=== PATIENT | male | born 1955 | race Caucasian/White ===

== ENCOUNTER 2018-07-09 14:14 | Inpatient (IN) | payer MEDICAID, OTHER ==
[~2018-07-09] VITALS: Ht 162.6 cm; Wt 159.7 kg
[2018-07-09] MEDS ORDERED: DOCU-150 MT (14:24)
[2018-07-09] MEDS ORDERED: INSU10VI2 SUBCUT (14:24)
[2018-07-09] MEDS ORDERED: PIOG15TA23 MT (14:24)
[2018-07-09] MEDS ORDERED: PANT40TA4 MT (14:24)
[2018-07-09] MEDS ORDERED: FERR325T6 MT (14:24)
[2018-07-09] MEDS ORDERED: METF-416 MT (14:24)
[2018-07-09] MEDS ORDERED: DICL100G31 TP (14:24)
[2018-07-09] MEDS ORDERED: FUROSEMIDE 40MG/4ML VIAL IV ONE (15:15)
[2018-07-09 16:35] LABS: BASOPHILS % 0.5 % (0.0-2.0); EOSINOPHILS % 0.8 % (0.0-5.0); HEMATOCRIT. 32.5 % (42.0-52.0); HEMOGLOBIN. 10.4 g/dL (14.0-18.0); LYMPHOCYTES % 15.9 % (20.0-50.0); MEAN CORPUSCULAR HEMOGLOBIN 27.7 pg (28.0-32.0); MEAN CORPUSCULAR VOLUME 87.1 fL (80.0-94.0); MEAN PLATELET VOLUME 7.8 fl (7.4-10.4); MONOCYTES % 7.3 % (2.0-8.0); NEUTROPHILS % 75.5 % (40.0-76.0); PLATELET 240 x1000/uL (130-400); RED BLOOD CELL COUNT 3.73 mill/uL (4.7-6.1); RED CELL DISTRIBUTION WIDTH 14.8 % (11.6-14.6)
[2018-07-09 16:37] LABS: CHLORIDE 105 mEq/L (98-107); INR 1.1; PROTHROMBIN TIME 10.6 sec (9.1-11.1)
[2018-07-09 16:42] LABS: ETHANOL BLOOD < 10 mg/dL
[2018-07-09 17:32] LABS: CLARITY URINE CLEAR (CLEAR); COLOR URINE YELLOW (YELLOW); KETONES URINE NEGATIVE (NEGATIVE); LEUKOCYTE ESTERASE URINE NEGATIVE (NEGATIVE); NITRITE URINE POSITIVE (NEGATIVE); OCCULT BLOOD URINE NEGATIVE (NEGATIVE); PH URINE 5.5 (4.5-8.0); PROTEIN URINE NEGATIVE (NEGATIVE); SPECIFIC GRAVITY URINE 1.013 (1.005-1.030); UROBILINOGEN URINE 0.2 E.U./dL (0.2-1.0)
[2018-07-09 17:46] LABS: *BARBITURATES SCREEN URINE NEGATIVE (NEGATIVE); *BENZODIAZEPINES SCREEN URINE NEGATIVE (NEGATIVE); *COCAINE SCREEN URINE NEGATIVE (NEGATIVE)
[2018-07-09 17:47] LABS: CANNABINOID URINE SCREEN NEGATIVE (NEGATIVE); METHADONE URINE SCREEN NEGATIVE (NEGATIVE); OPIATES URINE SCREEN NEGATIVE (NEGATIVE); PHENCYCLIDINE URINE SCREEN NEGATIVE (NEGATIVE)
[2018-07-09 17:54] LABS: *AMPHETAMINES SCREEN URINE NEGATIVE (NEGATIVE)
[2018-07-09] MEDS ORDERED: DIPHENHYDRAMINE 50MG/ML VIAL IV PRN (19:45)
[2018-07-09] MEDS ORDERED: IPRATROPIUM/ALBUTEROL 0.5-3(2.5)MG/3ML NEB INH PRN (19:45)
[2018-07-09] MEDS ORDERED: DEXTROSE 50% WATER 50ML SYRINGE IV PRN (19:45)
[2018-07-09] MEDS ORDERED: HYDROCODONE/ACETAMINOPHEN 5/325MG TABLET PO PRN (19:45)
[2018-07-09] MEDS ORDERED: ACETAMINOPHEN 325MG TABLET PO PRN (19:45)
[2018-07-09] MEDS ORDERED: LORAZEPAM 0.5MG TABLET PO PRN (19:45)
[2018-07-09] MEDS ORDERED: ACETAMINOPHEN 650MG SUPP PR PRN (19:45)
[2018-07-09] MEDS ORDERED: CLONIDINE 0.1MG TABLET PO PRN (19:45)
[2018-07-09] MEDS ORDERED: ONDANSETRON HCL 4MG/2ML INJ IV PRN (19:45)
[2018-07-09] MEDS ORDERED: NA PHOS,M-B/NA PHOS,DI-BA ENEMA 118ML PR PRN (19:45)
[2018-07-09] MEDS ORDERED: MAGNESIUM/ALUMINUM HYDROXIDE/SIMETHICONE 30ML UDC PO PRN (19:45)
[2018-07-09] MEDS ORDERED: DOCUSATE SODIUM 100MG CAPSULE PO PRN (19:45)
[2018-07-09] MEDS ORDERED: GUAIFENESIN 200MG/10ML SUGAR FREE UDC PO PRN (19:45)
[2018-07-09] MEDS ORDERED: LEVOFLOXACIN 500MG PREMIX 100 ML IV SCH (20:00)
[2018-07-09 20:23] LABS: BG BASE EXCESS 3.5 mmol/L (-2.0-2.0); BG CARBOXYHEMOGLOBIN 0.5 % (0.5-1.5); BG FRACTION INSPIRED OXYGEN 21; BG HCO3 ACT 28.3 mmol/L (22.0-26.0); BG METHEMOGLOBIN 0.2 % (0.0-1.5); BG OXYHEMOGLOBIN 94.3 % (94.0-97.0); BG PCO2 43.6 mmHg (35.0-45.0); BG PO2 74.5 mmHg (75.0-100.0); BG SAMPLE SITE RIGHT RADIAL; BG TOTAL HEMOGLOBIN 11.4 g/dL (12.0-18.0); BG VENT MODE ROOM AIR
[2018-07-09] MEDS: INSULIN LISPRO 100 UNITS/ML SUBCUT SCH (21:00)
[2018-07-09] MEDS: BLOOD SUGAR DIAGNOSTIC STRIP TEST SCH (21:00)
[2018-07-10 00:30] VITALS: BP 101/50
[2018-07-10 00:36] LABS: CREATINE KINASE 50 IU/L (39-308)
[2018-07-10 00:37] LABS: CREATINE KINASE MB FRACTION < 1.0 ng/mL (0.5-3.6)
[2018-07-10] MEDS ORDERED: IPRATROPIUM/ALBUTEROL 0.5-3(2.5)MG/3ML NEB INH SCH (06:00)
[2018-07-10 06:56] LABS: BASOPHILS % 0.5 % (0.0-2.0); EOSINOPHILS % 1.1 % (0.0-5.0); HEMATOCRIT. 33.5 % (42.0-52.0); HEMOGLOBIN. 10.8 g/dL (14.0-18.0); LYMPHOCYTES % 18.5 % (20.0-50.0); MEAN CORPUSCULAR HEMOGLOBIN 27.9 pg (28.0-32.0); MEAN CORPUSCULAR VOLUME 86.2 fL (80.0-94.0); MEAN PLATELET VOLUME 7.7 fl (7.4-10.4); MONOCYTES % 7.7 % (2.0-8.0); NEUTROPHILS % 72.2 % (40.0-76.0); PLATELET 261 x1000/uL (130-400); RED BLOOD CELL COUNT 3.88 mill/uL (4.7-6.1); RED CELL DISTRIBUTION WIDTH 14.9 % (11.6-14.6)
[2018-07-10] MEDS: BLOOD SUGAR DIAGNOSTIC STRIP TEST SCH ×3 (07:40→17:03)
[2018-07-10] MEDS ORDERED: PANTOPRAZOLE 40MG DR TABLET PO SCH (07:40)
[2018-07-10 08:00] VITALS: BP 110/49
[2018-07-10] MEDS ORDERED: ASPIRIN 81MG EC TABLET PO SCH (09:00)
[2018-07-10] MEDS ORDERED: AMLODIPINE 5MG TABLET PO SCH (09:00)
[2018-07-10] MEDS ORDERED: FUROSEMIDE 40MG/4ML VIAL IV SCH (09:00)
[2018-07-10] MEDS ORDERED: ENOXAPARIN 40MG/0.4ML SYR SUBCUT SCH (09:00)
[2018-07-10] MEDS: DOCUSATE SODIUM 100MG CAPSULE PO SCH ×2 (09:26→17:10)
[2018-07-10] MEDS: INSULIN LISPRO 100 UNITS/ML SUBCUT SCH ×3 (09:27→17:11)
[2018-07-10 11:25] LABS: CHLORIDE 103 mEq/L (98-107)
[2018-07-10 11:53] LABS: HDL CHOLESTEROL 42 mg/dL (40-59); LDL CHOLESTEROL 109 mg/dL (5-100); TOTAL IRON BINDING CAPACITY 388 ug/dL (250-450)
[2018-07-10 12:00] VITALS: BP 119/46
[2018-07-10 12:48] LABS: CREATINE KINASE 44 IU/L (39-308)
[2018-07-10] MEDS ORDERED: IPRATROPIUM/ALBUTEROL 0.5-3(2.5)MG/3ML NEB HHN SCH (13:00)
[2018-07-10 13:14] LABS: CREATINE KINASE MB FRACTION < 1.0 ng/mL (0.5-3.6)
[2018-07-10 16:00] VITALS: BP 98/49
[2018-07-10 17:39] VITALS: BP 119/46
[2018-07-10] MEDS ORDERED: LEVOFLOXACIN 500MG PREMIX 100 ML IV SCH (18:00)
[2018-07-11] MEDS ORDERED: LEVOFLOXACIN 500MG TABLET PO SCH (11:00)
== END 2018-07-10 19:22 | disposition home or self-care (01) | DRG 313 ==
LOC: ER 14:14 → EDBEDREQ 15:06 → 7WST 18:09 → EDBEDREQTM 18:24 → EDBEDREQ 18:24 → SUPCPDRO 20:28 → ENRESERV 23:26
PROVIDERS: ADMIT Internal Medicine; ATTEND Internal Medicine
DX: R07.89 Other chest pain (principal); E66.2 Morbid (severe) obesity with alveolar hypoventilation; Z68.44 Body mass index [BMI] 60.0-69.9, adult; J96.10 Chronic respiratory failure, unspecified whether with hypoxia or hypercapnia; D64.9 Anemia, unspecified; E11.51 Type 2 diabetes mellitus with diabetic peripheral angiopathy without gangrene; G40.909 Epilepsy, unspecified, not intractable, without status epilepticus; K21.9 Gastro-esophageal reflux disease without esophagitis; I10 Essential (primary) hypertension; I44.0 Atrioventricular block, first degree; K64.9 Unspecified hemorrhoids; E11.65 Type 2 diabetes mellitus with hyperglycemia; Z79.4 Long term (current) use of insulin
CPT/HCPCS: 36415; 36600; 71045; 71250; 80061; 80305; 82375; 82550; 82553; 82805; 82962; 83036; 83540; 83550; 83880; 84439; 84443; 84484; 85379; 87804; 93005; 93306; 93923; 93970; 96365; 96366; 96375; 97162; 99285; G0482; J1650; J1815; J1940; J1956; J7620

== ENCOUNTER 2019-12-26 20:19 | Inpatient (IN) | payer MEDICARE, MEDICAID ==
[~2019-12-26] VITALS: Ht 165.1 cm; Wt 170.4 kg
[~2019-12-26 20:19] MED LIST: DICL100G31 TP; DOCU-150 MT; FERR325T6 MT; INSU10VI2 SUBCUT; METF-416 MT; PANT40TA4 MT; PIOG15TA68 MT
[2019-12-26 23:36] LABS: HEMATOCRIT. 27.3 % (42.0-52.0); HEMOGLOBIN. 8.5 g/dL (14.0-18.0); MEAN CORPUSCULAR HEMOGLOBIN 22.8 pg (28.0-32.0); MEAN CORPUSCULAR VOLUME 73.3 fL (80.0-94.0); MEAN PLATELET VOLUME 7.6 fl (7.4-10.4); PLATELET 239 x1000/uL (130-400); RED BLOOD CELL COUNT 3.72 mill/uL (4.7-6.1); RED CELL DISTRIBUTION WIDTH 17.1 % (11.6-14.6)
[2019-12-26 23:45] LABS: CHLORIDE 100 mEq/L (98-107)
[2019-12-26 23:59] LABS: PLATELET ESTIMATE NORMAL
[2019-12-27] MEDS ORDERED: FUROSEMIDE 40MG/4ML VIAL IVP ONE (00:15)
[2019-12-27 14:10] VITALS: BP 117/68
[2019-12-27] MEDS ORDERED: DILTIAZEM HCL 5MG/ML 5ML VIAL IV NR (14:15)
[2019-12-27] MEDS ORDERED: CLONIDINE 0.1MG TABLET PO PRN (14:45)
[2019-12-27] MEDS ORDERED: HYDROCODONE/ACETAMINOPHEN 5/325MG TABLET PO PRN (14:45)
[2019-12-27] MEDS ORDERED: ONDANSETRON HCL 4MG/2ML INJ IV PRN (14:45)
[2019-12-27] MEDS ORDERED: ACETAMINOPHEN 325MG TABLET PO PRN (14:45)
[2019-12-27] MEDS ORDERED: DEXAMETHASONE 10 MG/ML VIAL IV NR (15:00)
[2019-12-27] MEDS: FUROSEMIDE 40MG/4ML VIAL IV SCH (15:10)
[2019-12-27 16:00] VITALS: BP 105/51
[2019-12-27 16:39] LABS: BASOPHILS % 0.3 % (0.0-2.0); EOSINOPHILS % 0.3 % (0.0-5.0); HEMATOCRIT. 29.6 % (42.0-52.0); HEMOGLOBIN. 9.1 g/dL (14.0-18.0); LYMPHOCYTES % 10.1 % (20.0-50.0); MEAN CORPUSCULAR HEMOGLOBIN 22.4 pg (28.0-32.0); MEAN CORPUSCULAR VOLUME 73.1 fL (80.0-94.0); MEAN PLATELET VOLUME 7.7 fl (7.4-10.4); MONOCYTES % 9.7 % (2.0-8.0); NEUTROPHILS % 79.6 % (40.0-76.0); PLATELET 256 x1000/uL (130-400); RED BLOOD CELL COUNT 4.05 mill/uL (4.7-6.1); RED CELL DISTRIBUTION WIDTH 17.2 % (11.6-14.6)
[2019-12-27 16:45] LABS: CHLORIDE 99 mEq/L (98-107)
[2019-12-27 16:53] LABS: D-DIMER 0.87 mg/L FEU (<0.50); INR 1.2; PARTIAL THROMBOPLASTIN TIME 29.5 sec (23.4-31.0); PROTHROMBIN TIME 12.3 sec (9.6-11.0)
[2019-12-27] MEDS: PIPERACILLIN/TAZOBACTAM 3.375 G in DEXT 5% WATER 100 ML IV SCH ×2 (17:00→17:10)
[2019-12-27] MEDS: INSULIN LISPRO 100 UNITS/ML SUBCUT SCH ×2 (18:10→20:28)
[2019-12-27] MEDS ORDERED: DEXTROSE 50% WATER 50ML SYRINGE IV PRN (18:15)
[2019-12-27] MEDS: BLOOD SUGAR DIAGNOSTIC STRIP TEST SCH (20:22)
[2019-12-27] MEDS: ENOXAPARIN 40MG/0.4ML SYR SUBCUT SCH (20:27)
[2019-12-27 20:50] VITALS: BP 112/54
[2019-12-27] MEDS ORDERED: PIPERACILLIN/TAZOBACTAM 3.375 G/VIAL IV SCH (22:00)
[2019-12-28] VITALS (7 sets, daily range): BP systolic 98–123; BP diastolic 55–71
[2019-12-28 00:01] LABS: CREATINE KINASE 426 IU/L (39-308)
[2019-12-28 00:02] LABS: CREATINE KINASE MB FRACTION 2.4 ng/mL (0.5-3.6)
[2019-12-28] MEDS: PIPERACILLIN/TAZOBACTAM 3.375 G in DEXT 5% WATER 100 ML IV SCH ×4 (00:20→19:21)
[2019-12-28] MEDS: BLOOD SUGAR DIAGNOSTIC STRIP TEST SCH ×4 (05:50→21:18)
[2019-12-28 06:30] LABS: CHLORIDE 102 mEq/L (98-107)
[2019-12-28 06:33] LABS: BASOPHILS % 0.1 % (0.0-2.0); HEMATOCRIT. 27.6 % (42.0-52.0); HEMOGLOBIN. 8.7 g/dL (14.0-18.0); LYMPHOCYTES % 9.6 % (20.0-50.0); MEAN CORPUSCULAR HEMOGLOBIN 22.9 pg (28.0-32.0); MEAN CORPUSCULAR VOLUME 72.9 fL (80.0-94.0); MONOCYTES % 3.7 % (2.0-8.0); NEUTROPHILS % 86.6 % (40.0-76.0); PLATELET 240 x1000/uL (130-400); RED BLOOD CELL COUNT 3.79 mill/uL (4.7-6.1); RED CELL DISTRIBUTION WIDTH 16.9 % (11.6-14.6)
[2019-12-28 06:41] LABS: LDL CHOLESTEROL 98 mg/dL (5-100)
[2019-12-28 06:42] LABS: CREATINE KINASE 300 IU/L (39-308); CREATINE KINASE MB FRACTION 1.8 ng/mL (0.5-3.6)
[2019-12-28 06:43] LABS: HDL CHOLESTEROL 34 mg/dL (40-59); T4 FREE 1.07 ng/dL (0.76-1.46)
[2019-12-28] MEDS ORDERED: THIAMINE HCL 100MG TABLET PO SCH (09:00)
[2019-12-28] MEDS ORDERED: ZINC SULFATE 220 MG ( 50 ) CAPSULE PO SCH (09:00)
[2019-12-28] MEDS ORDERED: ASCORBIC ACID 500 MG TABLET PO SCH (09:00)
[2019-12-28] MEDS: FUROSEMIDE 40MG/4ML VIAL IV SCH (09:43)
[2019-12-28] MEDS: ENOXAPARIN 40MG/0.4ML SYR SUBCUT SCH ×2 (09:45→21:19)
[2019-12-28] MEDS: INSULIN LISPRO 100 UNITS/ML SUBCUT SCH ×3 (10:01→22:37)
[2019-12-28 12:46] LABS: BG BASE EXCESS 2.3 mmol/L (-2.0-2.0); BG CARBOXYHEMOGLOBIN 0.2 % (0.5-1.5); BG HCO3 ACT 27.5 mmol/L (22.0-26.0); BG METHEMOGLOBIN 0.2 % (0.0-1.5); BG OXYHEMOGLOBIN 94.6 % (94.0-97.0); BG PH 7.395 (7.350-7.450); BG PO2 76.6 mmHg (75.0-100.0); BG SAMPLE SITE RIGHT RADIAL; BG TOTAL HEMOGLOBIN 9.6 g/dL (12.0-18.0); BG VENT MODE NASAL CANNULA
[2019-12-28 13:49] LABS: TOTAL IRON BINDING CAPACITY 382 ug/dL (250-450)
[2019-12-28] MEDS ORDERED: INSULIN GLARGINE UD 100 UNITS/ML SYR SUBCUT SCH (14:00)
[2019-12-28] MEDS ORDERED: IPRATROPIUM/ALBUTEROL 0.5-3(2.5)MG/3ML NEB HHN PRN (16:30)
[2019-12-28] MEDS: METHYLPREDNISOLONE SOD SUCC 40 MG/ML VIAL IV SCH (19:21)
[2019-12-28] MEDS: IPRATROPIUM/ALBUTEROL 0.5-3(2.5)MG/3ML NEB HHN SCH (20:48)
[2019-12-28] MEDS: FAMOTIDINE 20MG TABLET PO SCH (21:18)
[2019-12-29] VITALS: BP 107/54
[2019-12-29] MEDS: PIPERACILLIN/TAZOBACTAM 3.375 G in DEXT 5% WATER 100 ML IV SCH ×5 (00:44→23:30)
[2019-12-29] MEDS: IPRATROPIUM/ALBUTEROL 0.5-3(2.5)MG/3ML NEB HHN SCH ×4 (02:47→21:26)
[2019-12-29] MEDS: METHYLPREDNISOLONE SOD SUCC 40 MG/ML VIAL IV SCH ×3 (03:01→17:45)
[2019-12-29 04:00] VITALS: BP 108/52
[2019-12-29] MEDS: BLOOD SUGAR DIAGNOSTIC STRIP TEST SCH ×4 (04:52→20:41)
[2019-12-29 05:36] LABS: CHLORIDE 102 mEq/L (98-107)
[2019-12-29 06:06] LABS: BASOPHILS % 0.1 % (0.0-2.0); HEMATOCRIT. 26.8 % (42.0-52.0); HEMOGLOBIN. 8.1 g/dL (14.0-18.0); LYMPHOCYTES % 7.4 % (20.0-50.0); MEAN CORPUSCULAR HEMOGLOBIN 22.3 pg (28.0-32.0); MEAN CORPUSCULAR VOLUME 73.4 fL (80.0-94.0); MEAN PLATELET VOLUME 8.3 fl (7.4-10.4); MONOCYTES % 4.2 % (2.0-8.0); NEUTROPHILS % 88.3 % (40.0-76.0); PLATELET 250 x1000/uL (130-400); RED BLOOD CELL COUNT 3.65 mill/uL (4.7-6.1); RED CELL DISTRIBUTION WIDTH 17.3 % (11.6-14.6)
[2019-12-29 08:00] VITALS: BP 128/52
[2019-12-29] MEDS: INSULIN LISPRO 100 UNITS/ML SUBCUT SCH ×4 (08:23→20:44)
[2019-12-29] MEDS: ENOXAPARIN 40MG/0.4ML SYR SUBCUT SCH ×2 (08:23→20:42)
[2019-12-29] MEDS: FUROSEMIDE 40MG/4ML VIAL IV SCH (08:23)
[2019-12-29 08:24] LABS: CLARITY URINE CLEAR (CLEAR); COLOR URINE YELLOW (YELLOW); KETONES URINE NEGATIVE (NEGATIVE); LEUKOCYTE ESTERASE URINE 2+ (NEGATIVE); NITRITE URINE NEGATIVE (NEGATIVE); OCCULT BLOOD URINE NEGATIVE (NEGATIVE); PROTEIN URINE NEGATIVE (NEGATIVE); SPECIFIC GRAVITY URINE 1.024 (1.005-1.030)
[2019-12-29 08:41] LABS: *BARBITURATES SCREEN URINE NEGATIVE (NEGATIVE)
[2019-12-29 08:42] LABS: *AMPHETAMINES SCREEN URINE NEGATIVE (NEGATIVE); *BENZODIAZEPINES SCREEN URINE NEGATIVE (NEGATIVE); *COCAINE SCREEN URINE NEGATIVE (NEGATIVE); METHADONE URINE SCREEN NEGATIVE (NEGATIVE); OPIATES URINE SCREEN NEGATIVE (NEGATIVE); PHENCYCLIDINE URINE SCREEN NEGATIVE (NEGATIVE)
[2019-12-29 08:43] LABS: CANNABINOID URINE SCREEN NEGATIVE (NEGATIVE)
[2019-12-29] MEDS: INSULIN GLARGINE UD 100 UNITS/ML SYR SUBCUT SCH (11:17)
[2019-12-29 12:00] VITALS: BP 114/75
[2019-12-29] MEDS ORDERED: INSULIN GLARGINE UD 100 UNITS/ML SYR SUBCUT NR (12:30)
[2019-12-29] MEDS ORDERED: P20 PO (13:28)
[2019-12-29] MEDS ORDERED: AMOX1TAB16 MT (13:28)
[2019-12-29] MEDS ORDERED: ALBU90AE INH (13:28)
[2019-12-29] MEDS ORDERED: FURO-151 MT (13:28)
[2019-12-29] MEDS: METFORMIN HCL 500MG TABLET PO SCH ×2 (13:39→17:45)
[2019-12-29] MEDS: PIOGLITAZONE 15MG TABLET PO SCH (13:40)
[2019-12-29 16:00] VITALS: BP 124/73
[2019-12-29 16:22] LABS: BG BASE EXCESS 1.3 mmol/L (-2.0-2.0); BG CARBOXYHEMOGLOBIN 0.1 % (0.5-1.5); BG DEOXYHEMOGLOBIN 12.5 % (0.0-5.0); BG FRACTION INSPIRED OXYGEN 21; BG HCO3 ACT 26.7 mmol/L (22.0-26.0); BG METHEMOGLOBIN 0.2 % (0.0-1.5); BG OXYGEN SATURATION 87.5 % (92.0-98.5); BG OXYHEMOGLOBIN 87.2 % (94.0-97.0); BG PCO2 45.8 mmHg (35.0-45.0); BG PH 7.383 (7.350-7.450); BG PO2 54.9 mmHg (75.0-100.0); BG SAMPLE SITE RIGHT BRACHIAL; BG VENT MODE ROOM AIR
[2019-12-29] MEDS ORDERED: INSULIN REGULAR (HUMULIN R) UD 100 UNITS/ML SYR SUBCUT ONE (18:45)
[2019-12-29] MEDS ORDERED: INSULIN LISPRO 100 UNITS/ML SUBCUT ONE (19:00)
[2019-12-29] MEDS: FAMOTIDINE 20MG TABLET PO SCH (20:41)
[2019-12-29 20:51] VITALS: BP 116/67
[2019-12-30 00:18] VITALS: BP 115/72
[2019-12-30] MEDS: METHYLPREDNISOLONE SOD SUCC 40 MG/ML VIAL IV SCH ×3 (02:20→17:52)
[2019-12-30] MEDS: IPRATROPIUM/ALBUTEROL 0.5-3(2.5)MG/3ML NEB HHN SCH ×4 (02:35→21:20)
[2019-12-30 04:00] VITALS: BP 146/72
[2019-12-30] MEDS: PIPERACILLIN/TAZOBACTAM 3.375 G in DEXT 5% WATER 100 ML IV SCH ×3 (05:16→17:52)
[2019-12-30] MEDS: BLOOD SUGAR DIAGNOSTIC STRIP TEST SCH ×4 (07:29→21:49)
[2019-12-30 08:00] VITALS: BP_SYST 109; BP_SYST 128; BP_DIAS 52; BP_DIAS 59
[2019-12-30] MEDS: PIOGLITAZONE 15MG TABLET PO SCH (09:30)
[2019-12-30] MEDS: ENOXAPARIN 40MG/0.4ML SYR SUBCUT SCH ×2 (09:30→21:49)
[2019-12-30] MEDS: FUROSEMIDE 40MG/4ML VIAL IV SCH (09:30)
[2019-12-30] MEDS: METFORMIN HCL 500MG TABLET PO SCH ×2 (09:30→17:53)
[2019-12-30] MEDS: INSULIN LISPRO 100 UNITS/ML SUBCUT SCH ×4 (09:32→22:55)
[2019-12-30] MEDS: INSULIN GLARGINE UD 100 UNITS/ML SYR SUBCUT SCH ×2 (11:00→22:59)
[2019-12-30 12:00] VITALS: BP 122/52
[2019-12-30] MEDS ORDERED: INSULIN GLARGINE UD 100 UNITS/ML SYR SUBCUT SCH ×2 (12:00→13:00)
[2019-12-30 12:26] LABS: HEMATOCRIT 30.1 % (42.0-52.0); HEMOGLOBIN 9.3 g/dL (14.0-18.0); MEAN CORPUSCULAR HEMOGLOBIN 22.7 pg (28.0-32.0); MEAN CORPUSCULAR VOLUME 73.6 fL (80.0-94.0); PLATELET 260 x1000/uL (130-400); RED BLOOD CELL COUNT 4.08 mill/uL (4.7-6.1); RED CELL DISTRIBUTION WIDTH 16.9 % (11.6-14.6)
[2019-12-30 12:38] LABS: CHLORIDE 98 mEq/L (98-107)
[2019-12-30 12:43] LABS: PHOSPHORUS 4.2 mg/dL (2.5-4.9)
[2019-12-30 16:00] VITALS: BP 126/55
[2019-12-30] MEDS: DILTIAZEM HCL 30MG TABLET PO SCH (17:53)
[2019-12-30 20:28] VITALS: BP 139/73
[2019-12-30] MEDS: FAMOTIDINE 20MG TABLET PO SCH (21:49)
[2019-12-30] MEDS ORDERED: INSULIN LISPRO 100 UNITS/ML SUBCUT NR (22:28)
[2019-12-31 00:16] VITALS: BP 116/55
[2019-12-31] MEDS: PIPERACILLIN/TAZOBACTAM 3.375 G in DEXT 5% WATER 100 ML IV SCH ×4 (00:43→17:31)
[2019-12-31] MEDS: DILTIAZEM HCL 30MG TABLET PO SCH ×2 (00:43→06:35)
[2019-12-31] MEDS: IPRATROPIUM/ALBUTEROL 0.5-3(2.5)MG/3ML NEB HHN SCH ×2 (03:10→08:27)
[2019-12-31 04:00] VITALS: BP 124/68
[2019-12-31 06:00] LABS: HEMATOCRIT 29.1 % (42.0-52.0); HEMOGLOBIN 8.8 g/dL (14.0-18.0); MEAN CORPUSCULAR HEMOGLOBIN 22.1 pg (28.0-32.0); MEAN CORPUSCULAR VOLUME 73.4 fL (80.0-94.0); PLATELET 251 x1000/uL (130-400); RED BLOOD CELL COUNT 3.97 mill/uL (4.7-6.1); RED CELL DISTRIBUTION WIDTH 16.7 % (11.6-14.6)
[2019-12-31 06:19] LABS: CHLORIDE 98 mEq/L (98-107)
[2019-12-31] MEDS: METHYLPREDNISOLONE SOD SUCC 40 MG/ML VIAL IV SCH (06:35)
[2019-12-31] MEDS: BLOOD SUGAR DIAGNOSTIC STRIP TEST SCH ×4 (06:36→21:37)
[2019-12-31 06:41] LABS: VITAMIN B12 SERUM 411 pg/mL (211-911)
[2019-12-31 08:00] VITALS: BP 105/63
[2019-12-31] MEDS: METFORMIN HCL 500MG TABLET PO SCH ×2 (09:42→17:30)
[2019-12-31] MEDS: PIOGLITAZONE 15MG TABLET PO SCH (09:42)
[2019-12-31] MEDS: ENOXAPARIN 40MG/0.4ML SYR SUBCUT SCH (09:43)
[2019-12-31] MEDS: INSULIN LISPRO 100 UNITS/ML SUBCUT SCH ×4 (09:58→21:58)
[2019-12-31] MEDS: INSULIN GLARGINE UD 100 UNITS/ML SYR SUBCUT SCH ×2 (10:32→21:58)
[2019-12-31 12:00] VITALS: BP 119/53
[2019-12-31] MEDS ORDERED: IPRATROPIUM/ALBUTEROL 0.5-3(2.5)MG/3ML NEB HHN SCH (12:00)
[2019-12-31] MEDS: DILTIAZEM HCL 60MG TABLET PO SCH ×2 (14:02→18:00)
[2019-12-31 16:00] VITALS: BP 128/51
[2019-12-31] MEDS: APIXABAN 5 MG TABLET PO SCH (16:16)
[2019-12-31] MEDS: IPRATROPIUM BROMIDE (0.02%) 0.5MG/2.5ML NEB HHN SCH (17:00)
[2019-12-31 20:00] VITALS: BP 107/61
[2019-12-31] MEDS: FAMOTIDINE 20MG TABLET PO SCH (21:57)
[2019-12-31] MEDS ORDERED: INSULIN GLARGINE UD 100 UNITS/ML SYR SUBCUT SCH (22:00)
[2020-01-01] VITALS: BP 103/55
[2020-01-01] MEDS: IPRATROPIUM BROMIDE (0.02%) 0.5MG/2.5ML NEB HHN SCH ×3 (01:35→14:01)
[2020-01-01 04:30] VITALS: BP 111/71
[2020-01-01] MEDS: DILTIAZEM HCL 60MG TABLET PO SCH ×4 (06:00→15:22)
[2020-01-01 06:15] LABS: HEMATOCRIT 29.4 % (42.0-52.0); HEMOGLOBIN 8.9 g/dL (14.0-18.0); MEAN CORPUSCULAR HEMOGLOBIN 22.3 pg (28.0-32.0); MEAN CORPUSCULAR VOLUME 73.2 fL (80.0-94.0); PLATELET 248 x1000/uL (130-400); RED BLOOD CELL COUNT 4.02 mill/uL (4.7-6.1); RED CELL DISTRIBUTION WIDTH 16.9 % (11.6-14.6)
[2020-01-01 06:17] LABS: CHLORIDE 100 mEq/L (98-107)
[2020-01-01] MEDS: BLOOD SUGAR DIAGNOSTIC STRIP TEST SCH ×4 (07:08→21:47)
[2020-01-01] MEDS: METFORMIN HCL 500MG TABLET PO SCH ×2 (08:33→17:37)
[2020-01-01] MEDS: APIXABAN 5 MG TABLET PO SCH ×2 (08:33→17:37)
[2020-01-01] MEDS: PIOGLITAZONE 15MG TABLET PO SCH (08:33)
[2020-01-01] MEDS: INSULIN LISPRO 100 UNITS/ML SUBCUT SCH ×4 (08:35→21:54)
[2020-01-01 08:50] VITALS: BP 105/61
[2020-01-01] MEDS: INSULIN GLARGINE UD 100 UNITS/ML SYR SUBCUT SCH ×2 (11:19→21:55)
[2020-01-01 12:04] VITALS: BP 110/60
[2020-01-01 17:21] VITALS: BP 138/19
[2020-01-01 20:00] VITALS: BP 98/48
[2020-01-01] MEDS: FAMOTIDINE 20MG TABLET PO SCH (21:36)
[2020-01-02] VITALS: BP 117/72
[2020-01-02] MEDS: DILTIAZEM HCL 60MG TABLET PO SCH ×4 (00:27→17:58)
[2020-01-02 04:00] VITALS: BP 96/54
[2020-01-02] MEDS: BLOOD SUGAR DIAGNOSTIC STRIP TEST SCH ×4 (07:20→20:26)
[2020-01-02] MEDS: IPRATROPIUM BROMIDE (0.02%) 0.5MG/2.5ML NEB HHN SCH ×3 (07:58→20:25)
[2020-01-02 08:04] VITALS: BP 99/56
[2020-01-02] MEDS: METFORMIN HCL 500MG TABLET PO SCH ×2 (08:37→17:58)
[2020-01-02] MEDS: PIOGLITAZONE 15MG TABLET PO SCH (08:37)
[2020-01-02] MEDS: APIXABAN 5 MG TABLET PO SCH ×2 (08:38→17:58)
[2020-01-02] MEDS: INSULIN LISPRO 100 UNITS/ML SUBCUT SCH ×4 (08:40→20:31)
[2020-01-02] MEDS: INSULIN GLARGINE UD 100 UNITS/ML SYR SUBCUT SCH ×2 (11:16→21:37)
[2020-01-02 12:07] VITALS: BP 102/62
[2020-01-02 16:05] VITALS: BP 111/56
[2020-01-02 20:10] VITALS: BP 124/64
[2020-01-02] MEDS: FAMOTIDINE 20MG TABLET PO SCH (20:31)
[2020-01-03] MEDS: DILTIAZEM HCL 60MG TABLET PO SCH ×3 (00:11→12:39)
[2020-01-03 00:20] VITALS: BP 119/68
[2020-01-03 04:00] VITALS: BP 100/47
[2020-01-03] MEDS: BLOOD SUGAR DIAGNOSTIC STRIP TEST SCH ×2 (07:00→12:09)
[2020-01-03] MEDS: INSULIN LISPRO 100 UNITS/ML SUBCUT SCH ×2 (07:01→12:40)
[2020-01-03 08:00] VITALS: BP 101/57
[2020-01-03] MEDS: METFORMIN HCL 500MG TABLET PO SCH (08:15)
[2020-01-03] MEDS: PIOGLITAZONE 15MG TABLET PO SCH (08:15)
[2020-01-03] MEDS: APIXABAN 5 MG TABLET PO SCH (08:15)
[2020-01-03] MEDS: IPRATROPIUM BROMIDE (0.02%) 0.5MG/2.5ML NEB HHN SCH ×2 (08:22→14:41)
[2020-01-03] MEDS: INSULIN GLARGINE UD 100 UNITS/ML SYR SUBCUT SCH (10:57)
[2020-01-03 12:00] VITALS: BP 112/61
[2020-01-03 14:35] VITALS: BP 112/61
[2020-01-03 16:00] VITALS: BP 122/53
== END 2020-01-03 18:23 | disposition home or self-care (01) | DRG 871 ==
LOC: ER 20:19 → 7WST 12-27 00:07 → ENRESERV 12-27 11:42 → 6WST 12-27 23:52
PROVIDERS: ADMIT Internal Medicine; ATTEND Internal Medicine
DX: A41.9 Sepsis, unspecified organism (principal); I50.33 Acute on chronic diastolic (congestive) heart failure; J18.9 Pneumonia, unspecified organism; J44.1 Chronic obstructive pulmonary disease with (acute) exacerbation; Z68.44 Body mass index [BMI] 60.0-69.9, adult; E66.2 Morbid (severe) obesity with alveolar hypoventilation; I47.1 Supraventricular tachycardia; I11.0 Hypertensive heart disease with heart failure; D64.9 Anemia, unspecified; I73.9 Peripheral vascular disease, unspecified; E11.51 Type 2 diabetes mellitus with diabetic peripheral angiopathy without gangrene; E11.65 Type 2 diabetes mellitus with hyperglycemia; E78.5 Hyperlipidemia, unspecified; I48.91 Unspecified atrial fibrillation; E66.9 Obesity, unspecified; J45.909 Unspecified asthma, uncomplicated; Z20.828 Contact with and (suspected) exposure to other viral communicable diseases; Z79.4 Long term (current) use of insulin; Z79.899 Other long term (current) drug therapy; Z79.84 Long term (current) use of oral hypoglycemic drugs
CPT/HCPCS: 36415; 36600; 71045; 78580; 80048; 80053; 80061; 80305; 81003; 82375; 82550; 82553; 82607; 82805; 82962; 83036; 83540; 83550; 83735; 83880; 84100; 84145; 84439; 84443; 84484; 85025; 85027; 85044; 85379; 93005; 93306; 93970; 94640; 97116; 97162; 99285; J1100; J1650; J1815; J1940; J2543; J2920; J7060; U0003-CS